=== PATIENT | female | born 1990 | race African-American/Black ===

== ENCOUNTER 2016-07-09 17:22 | Emergency (ER) | payer OTHER ==
[~2016-07-09] VITALS: Ht 170.2 cm; Wt 63.2 kg
[~2016-07-09 17:22] MED LIST: AZITHROMYCIN500 MG; CIPRO500 MG PO; DOXYCYCLINE HY100 MG; FLAGYL500 MG; FLAGYL500 MG PO; FLONASE16 G1 BOTH NARES; HYDROCODON-ACE1 EAC7 PO; HYDROCODON-ACE1 EACH; IBUPROFEN600 MG; IBUPROFEN800 MG PO; MEDROXYPRO150 MG/1 M; MOTRIN800 MG PO; NAPROSYN500 MG PO; NOHOMEMEDS; PEN-VEE K,VEET500 MG PO; PRENATAL 19 CH1 EACH; PROZAC20 MG; TYLENOL EXTRA500 MG PO; TYLENOL WITH C1 EACH PO; VITAMIN D250000 UNIT; ZOFRAN4 MG PO
[2016-07-09 18:41] LABS: ADD MIUA? YES; BILIRUBIN NEGATIVE; BLOOD MODERATE; COLOR YELLOW ((YELLOW)); GLUCOSE (STRIP) NEGATIVE; KETONES NEGATIVE; LEUKOCYTES LARGE; NITRITE NEGATIVE; PROTEIN (STRIP) NEGATIVE; SPECIFIC GRAVITY 1.016 (1.000-1.030)
[2016-07-09 18:48] LABS: HEMATOCRIT 36.1 % (36.0-46.0); MCH 33.2 PG (29.0-34.0); MCHC 34.1 G/DL (30.0-36.0); MCV 97.3 FL (83-99); MEAN PLAT.VOLUME 9.5 uM^3 (9.5-12.4); PLATELET COUNT 226 K/uL (156-360); RBC DIS.WIDTH-SD 42.9 % (39-53); RED BLOOD COUNT 3.71 M/uL (3.80-5.20); WHITE BLOOD COUNT 4.6 K/uL (4.1-10.2)
[2016-07-09 18:56] LABS: CHLORIDE 107 mEq/L (99-109); POTASSIUM 3.9 mEq/L (3.7-5.4); SODIUM 140 mEq/L (136-147)
[2016-07-09 18:58] LABS: BACTERIA RARE /HPF; EPITHELIAL CELLS 3+ /HPF; MUCUS TRACE /LPF; RED BLOOD CELLS 15-20 /HPF (0-5); UCUL ADDED? NO
[2016-07-09 18:58] LABS: GLUCOSE 100 mg/dL (70-99)
[2016-07-09 19:00] LABS: ANION GAP 10 MEQ/L (2-14); TOTAL BILIRUBIN 0.9 mg/dL (0.0-1.0)
[2016-07-09 19:02] LABS: ALKALINE PHOSPHATASE 40 IU/L (3-129); GFR ESTIMATE (CALCULATED) > 59 mL/min/
[2016-07-09 19:03] LABS: UREA NITROGEN (BUN) 8 mg/dL (9-23)
[2016-07-09 19:50] LABS: QUANTITATIVE HCG 57163.8 MIU/ML
[2016-07-09] MEDS ORDERED: ZOFRAN4 MG PO (20:13)
[2016-07-09] MEDS ORDERED: AUGMENTIN875 MG PO (20:14)
[2016-07-09 20:29] VITALS: BP 113/60
== END 2016-07-09 20:29 | disposition home or self-care (01) ==
LOC: EME 17:22
DX: O23.41 Unspecified infection of urinary tract in pregnancy, first trimester (principal); O99.89 Other specified diseases and conditions complicating pregnancy, childbirth and the puerperium; R11.0 Nausea; O99.331 Smoking (tobacco) complicating pregnancy, first trimester; F17.200 Nicotine dependence, unspecified, uncomplicated; Z71.6 Tobacco abuse counseling; Z3A.01 Less than 8 weeks gestation of pregnancy
CPT/HCPCS: 80053; 81003; 84702; 85027; 87086; 99281; 99284

== ENCOUNTER 2016-11-05 13:10 | Outpatient (CLI) | payer OTHER ==
[~2016-11-05] VITALS: Ht 172.7 cm; Wt 70.0 kg
[~2016-11-05 13:10] MED LIST changes: +AUGMENTIN875 MG PO
[2016-11-05 13:46] VITALS: BP 110/58
[2016-11-05 15:20] LABS: ADD MIUA? YES; BILIRUBIN NEGATIVE; BLOOD SMALL; COLOR YELLOW ((YELLOW)); GLUCOSE (STRIP) NEGATIVE; KETONES NEGATIVE; LEUKOCYTES MODERATE; NITRITE NEGATIVE; PROTEIN (STRIP) NEGATIVE; SPECIFIC GRAVITY 1.018 (1.000-1.030)
[2016-11-05 15:34] LABS: AMPHETAMINE NEGATIVE (500 ng/mL); BARBITURATES NEGATIVE (200 ng/mL); BENZODIAZEPINES NEGATIVE (150 ng/mL); COCAINE NEGATIVE (150 ng/mL); INTERNAL CONTROLS VALID? YES; METHADONE NEGATIVE (200 ng/mL); METHAMPHETAMINE NEGATIVE (500 ng/mL); OPIATES (MORPHINE) NEGATIVE (100 ng/mL); OXYCODONE NEGATIVE (100 ng/mL); PHENCYCLIDINE NEGATIVE (25 ng/mL); PROPOXYPHENE NEGATIVE (300 ng/mL); THC CANNABINOIDS PRESUMPTIVE POSITIVE (50 ng/mL); TRICYCLIC ANTIDEPRESSANTS NEGATIVE (300 ng/mL)
[2016-11-05 15:35] LABS: ADD MEDTOX COMMENT Y
[2016-11-05 15:43] LABS: BACTERIA 2+ /HPF; CASTS PRESENT /LPF; CRYSTALS NONE SEEN; EPITHELIAL CELLS 1+ /HPF; FINE GRANULAR CASTS 0-5 /LPF; HYALINE CASTS 0-5 /LPF; MUCUS 3+ /LPF; UCUL ADDED? YES
[2016-11-05 18:13] LABS: CANDIDA DNA PROBE NEGATIVE; GARDNERELLA DNA PROBE POSITIVE
[2016-11-05 18:14] LABS: INTERNAL CONTROL VALID? YES
[2016-11-08 12:54] LABS: CHLAMYDIA TRACHOMATIS NEGATIVE; NEISSERIA GONORRHOEAE NEGATIVE
== END 2016-11-05 16:45 | disposition home or self-care (01) ==
LOC: EME 13:10 → EDSTATUS 13:39 → LDRP-OP 13:40 → 2WEST 13:41
PROVIDERS: Midwife
DX: O26.892 Other specified pregnancy related conditions, second trimester (principal); R10.9 Unspecified abdominal pain; O99.332 Smoking (tobacco) complicating pregnancy, second trimester; F17.210 Nicotine dependence, cigarettes, uncomplicated; O99.322 Drug use complicating pregnancy, second trimester; F12.90 Cannabis use, unspecified, uncomplicated; Z3A.23 23 weeks gestation of pregnancy
CPT/HCPCS: 81003; 84999; 87086; 87480; 87491; 87510; 87591; 87660; G0378

== ENCOUNTER 2017-02-25 22:06 | Outpatient (CLI) | payer OTHER ==
[2017-02-25 22:22] VITALS: BP 131/71
[2017-02-26 00:06] VITALS: BP 113/58
[2017-02-26 01:12] VITALS: BP 107/59
== END 2017-02-26 02:00 | disposition home or self-care (01) ==
LOC: LDRP-OP 22:06 → 2WEST 22:08 → LDRP-OP 03-30 13:35
DX: O47.1 False labor at or after 37 completed weeks of gestation (principal); Z3A.39 39 weeks gestation of pregnancy; O99.820 Streptococcus B carrier state complicating pregnancy
CPT/HCPCS: 59025; G0378

== ENCOUNTER 2017-02-27 21:44 | Outpatient (CLI) | payer OTHER ==
[~2017-02-27] VITALS: Ht 170.2 cm; Wt 67.1 kg
[2017-02-27 22:22] VITALS: BP 129/68
[2017-02-28] MEDS ORDERED: IBUPROFEN800 MG PO (22:55)
== END 2017-02-28 00:50 | disposition home or self-care (01) ==
LOC: LDRP-OP 21:44 → 2WEST 21:45 → LDRP-OP 03-30 02:06
DX: O47.1 False labor at or after 37 completed weeks of gestation (principal); O99.820 Streptococcus B carrier state complicating pregnancy; Z3A.39 39 weeks gestation of pregnancy
CPT/HCPCS: 59025; G0378

== ENCOUNTER 2017-02-28 21:17 | Inpatient (IN) | payer OTHER ==
[~2017-02-28] VITALS: Ht 172.7 cm; Wt 82.0 kg
[2017-02-28 21:19] VITALS: BP 126/63
[2017-02-28 22:07] LABS: EOSINOPHIL (%) 0.9 % (0-5); EOSINOPHIL COUNT 0.1 K/uL (0-0.3); HEMATOCRIT 35.9 % (36.0-46.0); IMMATURE GRANULOCYTE (%) 0.3 % (0.0-0.7); INSTRUMENT ABS NEUTROPHIL CT 4.1 K/uL; LYMPHOCYTE COUNT 2.7 K/uL (1.0-2.8); MCH 32.3 PG (29.0-34.0); MCHC 33.7 G/DL (30.0-36.0); MCV 95.7 FL (83-99); MEAN PLAT.VOLUME 10.7 uM^3 (9.5-12.4); MONOCYTE (%) 10.1 % (3-12); MONOCYTE COUNT 0.8 K/uL (0-0.8); NEUTROPHIL (%) 53.3 % (45-76); NEUTROPHIL COUNT 4.1 K/uL (1.8-6.4); PLATELET COUNT 188 K/uL (156-360); RBC DIS.WIDTH-CV 13.4 % (11.8-14.6); RBC DIS.WIDTH-SD 46.5 % (39-53); RED BLOOD COUNT 3.75 M/uL (3.80-5.20); WHITE BLOOD COUNT 7.7 K/uL (4.1-10.2)
[2017-02-28 22:14] VITALS: BP 127/73
[2017-02-28 22:29] VITALS: BP 139/74
[2017-02-28 22:44] VITALS: BP 124/73
[2017-02-28] MEDS ORDERED: IBUPROFEN800 MG PO (22:55)
[2017-02-28 22:59] VITALS: BP 121/76
[2017-02-28 23:14] VITALS: BP 112/75
[2017-03-01 00:23] VITALS: BP 120/64
[2017-03-01 01:14] VITALS: BP 121/68
[2017-03-01 04:05] VITALS: BP 102/62
[2017-03-01 08:09] LABS: HEMATOCRIT 29.1 % (36.0-46.0); MCH 32.6 PG (29.0-34.0); MCV 95.7 FL (83-99); MEAN PLAT.VOLUME 10.4 uM^3 (9.5-12.4); PLATELET COUNT 176 K/uL (156-360); RBC DIS.WIDTH-CV 13.3 % (11.8-14.6); RBC DIS.WIDTH-SD 45.8 % (39-53); RED BLOOD COUNT 3.04 M/uL (3.80-5.20); WHITE BLOOD COUNT 12.6 K/uL (4.1-10.2)
[2017-03-01 11:05] VITALS: BP 110/69
[2017-03-01 15:21] LABS: EOSINOPHIL (%) 0.3 % (0-5); HEMATOCRIT 27.3 % (36.0-46.0); IMMATURE GRANULOCYTE (%) 0.5 % (0.0-0.7); IMMATURE GRANULOCYTE COUNT 0.1 K/uL; INSTRUMENT ABS NEUTROPHIL CT 8.9 K/uL; LYMPHOCYTE COUNT 2.4 K/uL (1.0-2.8); MCH 33.2 PG (29.0-34.0); MCHC 34.4 G/DL (30.0-36.0); MCV 96.5 FL (83-99); MEAN PLAT.VOLUME 10.9 uM^3 (9.5-12.4); MONOCYTE (%) 7.9 % (3-12); NEUTROPHIL (%) 71.7 % (45-76); NEUTROPHIL COUNT 8.9 K/uL (1.8-6.4); PLATELET COUNT 190 K/uL (156-360); RBC DIS.WIDTH-CV 13.3 % (11.8-14.6); RBC DIS.WIDTH-SD 46.4 % (39-53); RED BLOOD COUNT 2.83 M/uL (3.80-5.20); WHITE BLOOD COUNT 12.4 K/uL (4.1-10.2)
[2017-03-01 22:37] VITALS: BP 106/59
[2017-03-02 07:50] LABS: EOSINOPHIL (%) 1.4 % (0-5); EOSINOPHIL COUNT 0.1 K/uL (0-0.3); HEMATOCRIT 23.9 % (36.0-46.0); IMMATURE GRANULOCYTE (%) 0.5 % (0.0-0.7); INSTRUMENT ABS NEUTROPHIL CT 4.5 K/uL; MCH 32.7 PG (29.0-34.0); MCHC 33.5 G/DL (30.0-36.0); MCV 97.6 FL (83-99); MEAN PLAT.VOLUME 10.7 uM^3 (9.5-12.4); MONOCYTE (%) 7.5 % (3-12); MONOCYTE COUNT 0.6 K/uL (0-0.8); NEUTROPHIL (%) 53.9 % (45-76); NEUTROPHIL COUNT 4.5 K/uL (1.8-6.4); PLATELET COUNT 179 K/uL (156-360); RBC DIS.WIDTH-CV 13.5 % (11.8-14.6); RBC DIS.WIDTH-SD 47.5 % (39-53); RED BLOOD COUNT 2.45 M/uL (3.80-5.20); WHITE BLOOD COUNT 8.4 K/uL (4.1-10.2)
[2017-03-02 22:42] VITALS: BP 104/57
[2017-03-03 07:23] VITALS: BP 100/52
[2017-03-03] MEDS ORDERED: FERROUS SULFAT325 MG PO (07:43)
== END 2017-03-03 12:10 | disposition home or self-care (01) | DRG 774 ==
LOC: LDRP-OP 21:17 → 2WEST 21:18 → LDRP-OP 03-30 02:01
PROVIDERS: Advanced Practice Midwife; Midwife
DX: O99.824 Streptococcus B carrier state complicating childbirth (principal); D62 Acute posthemorrhagic anemia; O72.2 Delayed and secondary postpartum hemorrhage; O62.3 Precipitate labor; O99.02 Anemia complicating childbirth; Z37.0 Single live birth; Z3A.40 40 weeks gestation of pregnancy; O77.0 Labor and delivery complicated by meconium in amniotic fluid; O99.284 Endocrine, nutritional and metabolic diseases complicating childbirth; E05.90 Thyrotoxicosis, unspecified without thyrotoxic crisis or storm
CPT/HCPCS: 59025; 85025; 85027; G0378; J1050; J2540; J7120